=== PATIENT | female | born 1945 | race Two or more races ===

== ENCOUNTER 2018-03-28 13:17 | Outpatient (CLI) | payer MEDICARE ==
--- NOTE | 2018-03-29 13:42 | EKG ---
Test Reason : Blood Pressure : / mmHG Vent. Rate : 076 BPM Atrial Rate : 076 BPM P-R Int : 158 ms QRS Dur : 082 ms QT Int : 402 ms P-R-T Axes : 060 -30 020 degrees QTc Int : 452 ms Normal sinus rhythm Left axis deviation Moderate voltage criteria for LVH, may be normal variant Nonspecific ST abnormality Abnormal ECG No previous ECGs available Confirmed by PÉREZ MARCANO ([id number]) on 03/29/2018 1:41:59 PM Referred By: SAMUEL Confirmed By:PÉREZ MARCANO
== END 2018-03-28 13:18 | disposition home or self-care (01) ==
LOC: LABBT 13:17
PROVIDERS: ATTEND Orthopaedic Surgery
DX: Z01.818 Encounter for other preprocedural examination (principal); M17.12 Unilateral primary osteoarthritis, left knee
CPT/HCPCS: 87081; 93005; 93010

== ENCOUNTER 2018-04-05 11:27 | Outpatient (CLI) | payer MEDICARE ==
[2018-04-05 12:30] LABS: #Basophils 0.1 thou/uL (0.0-0.2); #Eosinphils 0.2 thou/uL (0.0-0.7); #Lymphocytes 2.3 thou/uL (1.20-3.40); #Monocytes 0.4 thou/uL (0.11-0.59); #Neutrophils 3.1 thou/uL (1.40-6.50); %Basophils 1.5 % (0.0-1.0); %Eosinophils 2.5 % (0.0-10.0); %Lymphocytes 37.6 % (21.0-51.0); %Monocytes 6.9 % (0.0-10.0); %Neutrophils 51.4 % (42.0-75.0); Hemoglobin 13.7 g/dL (12.0-16.0); Mean Corpuscular HGB CONC 32.6 g/dL (32.0-36.0); Mean Corpuscular Hemoglobin 28.1 pg (27.0-31.0); Mean Corpuscular Volume 86.2 fL (78.0-98.0); Mean Platelet Volume 8.9 fL (7.4-10.4); Platelet Count 259 thou/uL (130-400); Red Blood Cell (RBC) Count 4.87 mill/uL (4.20-5.40); White Blood Cell (WBC) Count 6.1 thou/uL (4.8-10.8)
[2018-04-05 12:36] LABS: Bilirubin Negative (Negative); Blood, Urine Negative (Negative); Clarity CLEAR (Clear); Glucose, Urine (Dipstick) Negative (Negative); Leukocyte Trace (Negative); Nitrite Negative (Negative); Protein, Urine (Dipstick) Negative (Neg-Trace); Specific Gravity, Urine 1.007 (1.002-1.036); Urobilinogen 0.2 mg/dL (0.2-1.0)
[2018-04-05 12:37] LABS: INR-International Normal Ratio 0.9; Prothrombin Time 12.7 SEC (12.0-14.7)
[2018-04-05 12:39] LABS: Bacteria/HPF None Seen HPF (None Seen); Hyaline Casts/LPF 0-3 HYALINE CAST LPF (0-3 Hyaline); Pathc Cast-AUWi Flag 0.14 (0-2.49); RBC/HPF 0-3 HPF (0-3); Squamous Epithelial None Seen HPF (0-3); WBC/HPF None Seen HPF (0-3)
[2018-04-05 13:23] LABS: Anion Gap 16 mmol/L (10-20); BUN (Urea Nitrogen) 20 mg/dL (9.8-20.1); Calc. Creatinine Clearance 0 mL/min (70-130); Calcium 9.7 mg/dL (7.8-10.44); Carbon Dioxide 23 mmol/L (23-31); Chloride 105 mmol/L (98-107); Estimated GFR-MDRD 77; Glucose 89 mg/dL (83-110); Potassium 4.2 mmol/L (3.5-5.1); Sodium 140 mmol/L (136-145)
== END 2018-04-05 11:28 | disposition home or self-care (01) ==
LOC: LABBT 11:27
PROVIDERS: ATTEND Orthopaedic Surgery
DX: Z01.818 Encounter for other preprocedural examination (principal); M17.12 Unilateral primary osteoarthritis, left knee
CPT/HCPCS: 80048; 81001; 85025; 85610; 86850; 86900; 86901

== ENCOUNTER → 2018-04-08 | Day surgery (SDC) | payer MEDICARE ==
[2018-03-28 13:32] VITALS: BMI 28.1
[~2018-04-08] MED LIST: Acetaminophen 325 MG TAB PO PRN; Budesonide 0.5 MG/2 ML NEB NEB PRN; Bupivacaine PF 0.5% 30 ML VIAL ONE; Clindamycin/D5W 600 mg/50 ml Premix Bag ONE; Cyclobenzaprine 10 MG TAB PO PRN; Fentanyl 100 MCG/2 ML VIAL IV PRN; Fentanyl 100 MCG/2 ML VIAL ONE; Fentanyl 250 MCG/5 ML VIAL ONE; HYDROcodone/Acetaminophen 10/325 mg Tablet PO PRN; Midazolam HCl 2 mg/2 ml Vial ONE; Morphine 4 MG/ML VIAL IV SCH; Morphine 4 MG/ML VIAL ONE; Non-Formulary Item 1 EACH (Iron [Iron] 18 MG) PO SCH; Ondansetron HCl/PF 4 MG/2 ML Vial IVP PRN; Promethazine HCl 25 MG/ML VIAL IM PRN; Promethazine HCl 25 MG/ML VIAL SLOW IVP PRN; Ropivacaine 0.5% HCl/PF (150 MG/30 ML VIAL) ONE; Ropivacaine HCl/PF 250 ML in Premix Bag 1 BAG NERVE BLCK SCH; Sodium Chloride 0.9% 100 ML ONE; Temazepam 15 MG CAP PO PRN; Tranexamic Acid 1,000 MG in Sodium Chloride 0.9% 100 ML IVPB SCH; Vancomycin HCl 1 GM in Premix Bag 1 BAG IVPB SCH; Zolpidem Tartrate 5 MG TAB PO PRN; diphenhydrAMINE 25 MG CAP PO PRN; traMADol HCl 50 MG TAB PO PRN
--- NOTE | 2018-04-08 12:01 | OP ---
DATE OF PROCEDURE: 04/08/2018 PREOPERATIVE DIAGNOSIS: Left knee osteoarthrosis. POSTOPERATIVE DIAGNOSIS: Left knee osteoarthrosis. PROCEDURE PERFORMED: Left total knee replacement using [place] pinless navigation. SURGEON: Moris Rebolledo M.D. VP AD [employer] WEST: Jaxson Swanson PA-C. BLOOD LOSS: Minimal. COMPLICATIONS: None. ANESTHESIA: She had general anesthetic as well as a local block. DISPOSITION: She went to the recovery room in stable condition. IMPLANTS: To the left knee, [place] Triathlon knee system, the femur was size 4 cruciate retaining, the tibial baseplate size 4 universal tibial baseplate. We used a 4 x 9 mm CSX3 tibial bearing and a n asymmetric 29 x 9 X3 patella. INDICATIONS: This is a 73-year-old female who comes in after failing nonoperative treatment for left knee arthritis. At this time, she wished to have her left total knee replaced. PROCEDURE IN DETAIL: After all appropriate consent forms were explained and signed, the patient was t aken back to the Operating Room and at this time was given general anesthetic. Once the level of anes thesia was appropriate, a well-padded tourniquet was placed on the left leg and the leg was then prep ped and draped in standard surgical fashion. The limb was exsanguinated and tourniquet taken up to 30 0 mmHg. Midline incision was made with a 10 blade down through the skin and subcutaneous tissue. Bovi e electrocautery was used to coagulate any brisk venous bleeding. A new blade was used to make a medi al parapatellar arthrotomy. Small subperiosteal release was performed medially and excess fat pad was removed. The knee was flexed up to gain access to the femur. The femur was navigated and distal femo ral resection was made. Epicondylar access was used to align our sizing jig and this was pinned in pl [place]. We sized our femur to be a size 4 cruciate retaining 4:1 cutting block was applied and pinned. A nterior and posterior chamfer cuts were then made. We navigated out our proximal tibia and made our p roximal tibial resection. Spreaders were used to remove any posterior osteophytes off the back of the femur as well as remaining meniscal tissue. A long alignment jigar was then used to achieve correct ro tation of our tibial baseplate and a size 4 universal was chosen. This was pinned in place. We triale d the polyethylene and a 4 x 9 mm CSX3 tibial bearing polyethylene gave us full extension and good st ability throughout range of motion. Two towel clips and a saw were used to cut our patella. Three lug nuts were drilled and asymmetric 29 x 9 X3 patella was trialed which sat nicely in the trochlear lo ove. We then drilled our femur and punched our tibia. All components were removed. The knee was thoro ughly irrigated and dried. Cement was mixed into the cement gun on the back table. Components were th en placed. The knee was held out in full extension until the cement had dried. All excess bone cement was removed. Multiple #2 Vicryl stitches as well as a Quill was used to close our extensor mechanis m. 0 Quill followed by a running Monoderm was then used to close the skin. Surgicel glue was then use d on the skin. Once this had dried, soft tissue dressing was applied to the limb, tourniquet was let down, and the toes pinked up nicely. The patient was then awakened and taken to the Recovery Room in stable condition. All counts were correct at the end of the case. The patient did receive preoperati ve IV antibiotics. The patient was injected with Exparel for postoperative pain relief.
[2018-04-08] MEDS: Clindamycin/D5W 900 MG in Premix Bag 1 BAG IVPB SCH ×2 (16:45→20:37)
[2018-04-08] MEDS: HYDROcodone/Acetaminophen 10/325 mg Tablet PO PRN ×2 (16:52→21:38)
[2018-04-08] MEDS: Sodium Chloride 0.9% 1,000 ML IV SCH ×2 (17:05→20:38)
[2018-04-08] MEDS: Ketorolac Tromethamine 30 MG/ML VIAL IVP SCH ×3 (17:05→23:37)
[2018-04-08] MEDS: Albuterol Sulfate 1.25 MG/3 ML NEB NEB PRN (18:06)
--- NOTE | 2018-04-08 20:04 | CON ---
DATE OF CONSULTATION: 04/08/2018 [facility] CONSULTANT: Dr. Rebolledo. REASON FOR CONSULTATION: Perioperative medical management. HISTORY OF PRESENT ILLNESS: Patient is a 73-year-old female with a history of chronic degenerative j oint disease who has failed conservative therapy including steroid joint injections and arthroplasty in the past. The patient is now postop left total knee replacement. The patient reports that she is doing well currently and has no specific complaints and is not having significant pain. PAST MEDICAL HISTORY: Notable for asthma. The patient reports that the last time she was in the [facility], she did require some nebulizer treatments. She has generally been well controlled. She does have a history of diverticulitis. She also has a history of aortic aneurysm. She indicates the uppe r chest as if it is in the ascending arch area. She has a doctor in [place] who was following this r outinely. PAST SURGICAL HISTORY: , colon surgery and cataractectomy. FAMILY HISTORY: Notable for no significant problems relative to her current admission. PSYCHOSOCIAL HISTORY: The patient is a nonsmoker, minimal drinker, nondrug user. ALLERGIES: PENICILLIN. HOME MEDICATIONS: Dulcolax 100 mg p.o. at bedtime, iron 18 mg every day, budesonide 1 ampule inhaled p.r.n., Theophylline ER 300 mg every day, Singulair 10 mg every day, Incruse Ellipta 1 inhalation ev bety day, [place] 10/325 p.o. t.i.d. p.r.n., Flexeril 10 mg p.r.n., atenolol 25 mg every day. PHYSICAL EXAMINATION: GENERAL APPEARANCE: Age appropriate female. She is in no distress, awake, alert, oriented, pleasant and cooperative. HEENT: PERRL. No OP lesions. NECK: Supple and symmetric. HEART: Regular rate and rhythm without murmurs. LUNGS: Have fairly good air exchange, but have some relatively diffuse end expiratory wheezes. ABDOMEN: Soft, nontender, nondistended, positive bowel sounds. No masses, no organomegaly. EXTREMITIES: Lower extremities are warm and dry. She has good peripheral pulses. LABORATORY DATA: From 04/05/2018, white count 6.1, hemoglobin 13.7, platelets 259. INR 0.9, BNP is negative. Urinalysis shows trace leukocyte esterase, but no white cells. ASSESSMENT AND PLAN: 1. Postop left total knee arthroplasty. Patient is doing very well postoperatively. We will defer to Orthopedics regarding postop care. 2. Asthma. Patient has a known history of asthma. She has some minor wheezing now, but seems to be relatively asymptomatic and moving air fairly well. We will make sure she has nebulizer treatments ordered for her p.r.n. 3. History of an aortic arch aneurysm. It sounds like this has been monitored closely and stable. No intervention indicated at this time.
[2018-04-08] MEDS: Docusate 100 MG CAP PO SCH (20:37)
[2018-04-08] MEDS: Aspirin 81 mg Enteric Coated Tablet PO SCH (20:37)
[2018-04-09] MEDS: HYDROcodone/Acetaminophen 10/325 mg Tablet PO PRN ×5 (03:34→23:31)
[2018-04-09 05:57] LABS: Hemoglobin 10.1 g/dL (12.0-16.0); Mean Corpuscular HGB CONC 33.1 g/dL (32.0-36.0); Mean Corpuscular Hemoglobin 28.4 pg (27.0-31.0); Mean Platelet Volume 9.2 fL (7.4-10.4); Platelet Count 223 thou/uL (130-400); Red Blood Cell (RBC) Count 3.55 mill/uL (4.20-5.40); White Blood Cell (WBC) Count 14.9 thou/uL (4.8-10.8)
[2018-04-09] MEDS: Ketorolac Tromethamine 30 MG/ML VIAL IVP SCH ×4 (06:14→23:32)
[2018-04-09] MEDS: Sodium Chloride 0.9% 1,000 ML IV SCH ×2 (06:16→19:22)
[2018-04-09] MEDS: Albuterol Sulfate 1.25 MG/3 ML NEB NEB PRN (07:20)
[2018-04-09] MEDS: Atenolol 25 MG TAB PO SCH (07:33)
[2018-04-09] MEDS: Senokot S 8.6-50 MG TAB PO SCH ×2 (07:33→19:52)
[2018-04-09] MEDS: Ferrous Gluconate 324 MG TAB PO SCH ×2 (07:34→19:52)
[2018-04-09] MEDS: Aspirin 81 mg Enteric Coated Tablet PO SCH ×2 (07:34→19:52)
[2018-04-09] MEDS: Multivitamin W/ Minerals 1 TAB PO SCH (07:34)
--- NOTE | 2018-04-09 12:36 | PRG ---
DATE OF SERVICE: 04/09/2018 SUBJECTIVE: Shireen is a 73-year-old white female who is postop day #1 from a left total knee arthropl asty. She is doing very well. In fact, her pain is controlled with her indwelling catheter. She mckeon s had very little in the way of complaints and she is very cheerful this morning. OBJECTIVE: VITAL SIGNS: Temperature 98.8, pulse 91, blood pressure 123/59, respiratory rate 16, O2 saturation 1 00% on room air. GENERAL: She is alert, oriented to person, place, time, and situation. Grossly nonfocal and very ap propriate and happy with the examiner and appears incredibly comfortable. EXTREMITIES: She is neurovascularly intact in both lower extremities. Hemoglobin and hematocrit are 10 and 30. ASSESSMENT: 1. A 73-year-old white female postop day #1 left total knee arthroplasty, doing incredibly well. 2. Asymptomatic mild postoperative hemorrhagic anemia. PLAN: Continue current care. Probable discharge tomorrow.
[2018-04-09] MEDS: Docusate 100 MG CAP PO SCH (19:53)
[2018-04-10] MEDS: Sodium Chloride 0.9% 1,000 ML IV SCH (01:02)
[2018-04-10] MEDS: HYDROcodone/Acetaminophen 10/325 mg Tablet PO PRN ×3 (03:56→12:15)
[2018-04-10] MEDS: Ketorolac Tromethamine 30 MG/ML VIAL IVP SCH (05:40)
[2018-04-10 06:23] LABS: Hemoglobin 10.4 g/dL (12.0-16.0); Mean Corpuscular Hemoglobin 28.7 pg (27.0-31.0); Mean Platelet Volume 9.4 fL (7.4-10.4); Platelet Count 206 thou/uL (130-400); RBC Distribution Width 12.2 % (11.5-14.5); Red Blood Cell (RBC) Count 3.63 mill/uL (4.20-5.40); White Blood Cell (WBC) Count 7.9 thou/uL (4.8-10.8)
[2018-04-10] MEDS: Atenolol 25 MG TAB PO SCH (08:29)
[2018-04-10] MEDS: Ferrous Gluconate 324 MG TAB PO SCH (08:30)
[2018-04-10] MEDS: Aspirin 81 mg Enteric Coated Tablet PO SCH (08:30)
[2018-04-10] MEDS: Multivitamin W/ Minerals 1 TAB PO SCH (08:30)
[2018-04-10 11:53] VITALS: BP 162/97; TEMP 98.4
[2018-04-10] MEDS: Senokot S 8.6-50 MG TAB PO SCH (12:17)
== END ==
LOC: SDC 07:18 → SURG A 14:24
PROVIDERS: ATTEND Orthopaedic Surgery
PROC: 0SRD0J9 Replacement of Left Knee Joint with Synthetic Substitute, Cemented, Open Approach (ICD-10-PCS; principal; 2018-04-08)
DX: M17.12 Unilateral primary osteoarthritis, left knee (principal); J45.909 Unspecified asthma, uncomplicated; I71.2 Thoracic aortic aneurysm, without rupture; D64.9 Anemia, unspecified; Z79.899 Other long term (current) drug therapy; Z88.0 Allergy status to penicillin
CPT/HCPCS: 36415; 85027; 86850; 86900; 86901; 94640; 96374; A4216; C1713; C1776; G8978-GP-CM; G8979-GP-CJ; J1885; J2250; J2270; J2795; J3010; J3370; J3490; J7050; J7626; S0020

== ENCOUNTER 2018-04-26 04:04 | Inpatient (IN) | payer MEDICARE ==
[2018-04-26] MEDS ORDERED: Ondansetron HCl/PF 4 MG/2 ML Vial ONE ×2 (04:30→09:51)
[2018-04-26] MEDS ORDERED: Morphine 4 MG/ML VIAL ONE ×2 (04:30→07:49)
[2018-04-26 06:37] LABS: #Basophils 0.1 thou/uL (0.0-0.2); #Eosinphils 0.1 thou/uL (0.0-0.7); #Lymphocytes 1.9 thou/uL (1.20-3.40); #Monocytes 0.5 thou/uL (0.11-0.59); #Neutrophils 7.3 thou/uL (1.40-6.50); %Basophils 0.9 % (0.0-1.0); %Eosinophils 1.3 % (0.0-10.0); %Lymphocytes 18.9 % (21.0-51.0); %Monocytes 4.6 % (0.0-10.0); %Neutrophils 74.3 % (42.0-75.0); Hemoglobin 11.1 g/dL (12.0-16.0); Mean Corpuscular HGB CONC 33.3 g/dL (32.0-36.0); Mean Corpuscular Hemoglobin 28.6 pg (27.0-31.0); Mean Platelet Volume 8.1 fL (7.4-10.4); Platelet Count 441 thou/uL (130-400); RBC Distribution Width 12.1 % (11.5-14.5); Red Blood Cell (RBC) Count 3.89 mill/uL (4.20-5.40); White Blood Cell (WBC) Count 9.8 thou/uL (4.8-10.8)
[2018-04-26 06:54] LABS: ALT (SGPT) 29 U/L (8-55); AST (SGOT) 21 U/L (5-34); Albumin 4.3 g/dL (3.4-4.8); Alkaline Phosphatase 166 U/L (40-150); Anion Gap 14 mmol/L (10-20); BUN (Urea Nitrogen) 24 mg/dL (9.8-20.1); Bilirubin, Total 0.3 mg/dL (0.2-1.2); Calc. Creatinine Clearance 0 mL/min (70-130); Calcium 9.3 mg/dL (7.8-10.44); Carbon Dioxide 22 mmol/L (23-31); Chloride 106 mmol/L (98-107); Estimated GFR-MDRD 73; Globulin 2.7 g/dL (2.4-3.5); Glucose 116 mg/dL (83-110); Potassium 4.5 mmol/L (3.5-5.1); Sodium 137 mmol/L (136-145)
--- NOTE | 2018-04-26 08:01 | RAD ---
CHEST 1 VIEW: Date: 04/26/18 HISTORY: Preoperative exam. COMPARISON: None. FINDINGS: Atherosclerosis of the aortic knob. Slight elongation of the aorta. Normal cardiac silhouette. Pulmon georgie vessels and hilum are normal. Costophrenic angles are clear. No masses. No consolidation. Old rig ht rib fractures. No pneumothorax. IMPRESSION: Atherosclerosis. No acute cardiopulmonary process. POS: [facility]
--- NOTE | 2018-04-26 08:06 | RAD ---
LEFT KNEE FOUR VIEWS: HISTORY: Fall three weeks ago. Pain. COMPARISON: None. FINDINGS: The lateral projection suggests a possible cortical break involving the anterior distal femur. Uncom plicated prosthesis. There appears to be a joint effusion. IMPRESSION: Possible fracture involving the anterior distal left femur. The results of the study were discussed with Dr. Weston on 04/26/2018 at 7:48 a.m. CODE ANGELITO POS: [place]
--- NOTE | 2018-04-26 08:11 | RAD ---
LEFT KNEE ONE VIEW: HISTORY: Fall three weeks ago. Pain. FINDINGS: Previously discussed cortical defect on the anterior distal femur is not appreciated; however, there is a significant joint effusion. If there is concern for fracture, consider CT. The results of the study were discussed with Dr. Weston on 04/26/2018 at 7:49 a.m. CODE [facility] [place]: [place]
[2018-04-26] MEDS ORDERED: PROPOFOL 200 MG/20 ML VIAL ONE (09:51)
[2018-04-26] MEDS ORDERED: Lidocaine 1% PF 5 ML VIAL ONE (09:51)
[2018-04-26] MEDS ORDERED: Dexamethasone 20 MG/5 ML VIAL ONE (09:51)
[2018-04-26 10:17] VITALS: BMI 27.4
--- NOTE | 2018-04-26 11:19 | HP ---
DATE OF SERVICE: 04/26/2018 ATTENDING: Dr. Moris Rebolledo CHIEF COMPLAINT: Left knee pain status post fall. HISTORY OF PRESENT ILLNESS: This is a 73-year-old female who recently underwent left total knee replacement 3 weeks ago, presented to the emergency department around 4:00 o'clock this morning after she states that she had a dream that she needed to go to the bathroom. She suddenly awoke and walked to the bathroom forgetting she recently underwent surgery for her left knee by Dr. Rebolledo on 04/08/2018. She states that her knee buckled below her and she fell landing on her left knee. She contacted the physician remediation consultant and was directed to the emergency department. Upon workup in the emergency department, the patient was found to have a partial quadriceps tendon rupture. Currently, at bedside, the patient states that her pain is tolerable. She denies any numbness or tingling. She had been doing very well after her total knee replacement. The patient states that her pain and swelling she feels as this has improved since she was in the ER earlier this morning. She states she is able to do a straight leg raise at this time. PAST MEDICAL HISTORY: Asthma, diverticulitis, aortic aneurysm. PAST SURGICAL HISTORY: Significant for C-sections, colon surgery, cataract surgery and her left total knee replacement done in March of this year. FAMILY HISTORY: Reviewed and noncontributory. SOCIAL HISTORY: The patient lives at home alone. She currently has a friend that resides with her during her postoperative course. She denies any smoking or illicit drug use. She is a social drinker. ALLERGIES: PENICILLIN. REVIEW OF SYSTEMS: Ten point review of systems conducted and otherwise negative except for as stated above. PHYSICAL EXAMINATION: GENERAL: The patient is awake and alert. She is mildly distressed secondary to anxiety. Her son is at bedside with her. She is in no acute distress. VITAL SIGNS: Temperature 98.2, pulse 75, respirations 16, blood pressure 126/ 74. HEENT: Head is normocephalic, atraumatic. NECK: Supple. Trachea midline. RESPIRATORY: Breathing nonlabored. CARDIOVASCULAR: Regular rate and rhythm. EXTREMITIES: The left lower extremity was examined. There is a surgical wound to the left anterior knee. This has healed quite nicely. No surrounding erythema. No wound dehiscence. The patient has some soft tissue swelling to the lateral quadriceps region. She is able to hold a straight leg raise for greater than 5 seconds. Plantar flexion, dorsiflexion intact in the foot. No tenderness to palpation over the calf. Distal neurovascular status intact in the foot. Range of motion not assessed in the knee. Remainder of extremity exam is otherwise unremarkable. Radiographic imaging including a lower extremity ultrasound verifies a partial quadriceps tendon tear. These results were phoned to Dr. Rebolledo. ASSESSMENT: Status post left total knee replacement with partial quadriceps tendon tear, left knee. PLAN: At this time, we would like to go forward with surgery to restore anatomy and preserve function to the partial tendon tear of the quadriceps tendon to the left knee. Surgical intervention discussed at length with the patient today as well as her family. They verbalized understanding. They are amenable to this plan of care. We will plan to proceed with surgery today. All questions have been answered. JOSE ALFREDO
[2018-04-26] MEDS ORDERED: Fentanyl 100 MCG/2 ML VIAL ONE ×4 (11:30→15:32)
--- NOTE | 2018-04-26 11:44 | ULT ---
LIMITED ULTRASOUND OF THE BILATERAL KNEES: 04/26/2018 HISTORY: Left lower extremity pain after a fall. The patient has a history of a left total knee prosthesis. Physical examination is limited, and there is concern for extensor mechanism and possible tear. TECHNIQUE: Limited sonographic evaluation of each knee was performed. Views of the right knee were obtained for comparison. FINDINGS: Imaging of the suprapatellar and infrapatellar locations of the right knee demonstrate fibers of the quadriceps tendon, as well as the patellar tendon, which appear normally located, without fluid signa l intensity in these regions. There is a tiny, nonspecific fluid collection seen lateral to the righ t patella, measuring 1.3 cm. Imaging of the left knee is difficult due to the patient's midline scar. There are several fluid col lections about the knee, some of which are likely related to joint effusions. The largest complex ar ea of fluid, lateral to the patella, left knee, demonstrates increased echogenic material, likely rel ated to hemorrhage. This measures 4.9 cm x 4 cm x 3.9 cm and is likely related to hemorrhage/hematom a. Additional separate collections are also seen about the left knee, although the collections are l ess complicated in appearance. In the expected location of the quadriceps tendon, just superior to the level of the patella, there i s heterogeneity and, while normal appearing fibers are unable to be delineated, there is no fluid sig nal intensity to suggest a complete tear, but findings are worrisome for at least a partial tear of t he quadriceps tendon. IMPRESSION: 1. Heterogeneous appearance in the region of the distal portion of the quadriceps tendon, just super ior to the level of the patella. There is no fluid collection or gap to definitely suggest a complet e tear involving the quadriceps tendon, but given the heterogeneity in the distal portion of the tend on, findings are worrisome for a partial tear likely high grade. No normal fibers of the quadriceps tendon are seen, but the extent of the partial tear is difficulty to further delineate due to heterog eneous material. 2. Left knee joint effusion with fluid collections seen adjacent to the left knee, one of which demo nstrates increased echogenic material, likely related to hemorrhage, with the greatest dimension at 4 .9 cm. POS: [facility]
[2018-04-26] MEDS ORDERED: Clindamycin/D5W 600 mg/50 ml Premix Bag ONE (12:19)
[2018-04-26] MEDS ORDERED: traMADol HCl 50 MG TAB PO PRN (12:43)
[2018-04-26] MEDS ORDERED: HYDROcodone/Acetaminophen 10/325 mg Tablet PO PRN (12:43)
[2018-04-26] MEDS ORDERED: Ondansetron HCl/PF 4 MG/2 ML Vial IV PRN (12:43)
[2018-04-26] MEDS ORDERED: Fentanyl 100 MCG/2 ML VIAL SLOW IVP PRN (12:43)
[2018-04-26] MEDS ORDERED: Tranexamic Acid 1,000 MG in Sodium Chloride 0.9% 100 ML IVPB SCH (12:45)
[2018-04-26] MEDS ORDERED: Communication Order-Pharmacy FS SCH (12:45)
[2018-04-26] MEDS ORDERED: Ondansetron ODT 4 MG TAB PO PRN (13:02)
[2018-04-26] MEDS: Dextrose 5 % And 0.9 % NaCl 1,000 ML IV SCH ×2 (13:25→15:56)
[2018-04-26] MEDS ORDERED: Promethazine HCl 25 MG/ML VIAL SLOW IVP PRN (14:04)
[2018-04-26] MEDS ORDERED: Ondansetron HCl/PF 4 MG/2 ML Vial IVP PRN (14:04)
[2018-04-26] MEDS ORDERED: Promethazine HCl 25 MG/ML VIAL IM PRN (14:04)
[2018-04-26] MEDS ORDERED: Morphine Sulfate 2 MG/ML SYRINGE SLOW IVP PRN (14:05)
[2018-04-26] MEDS ORDERED: HYDROmorphone 2 MG/ML VIAL ONE (14:14)
[2018-04-26] MEDS ORDERED: Midazolam HCl 2 mg/2 ml Vial ONE (14:45)
[2018-04-26] MEDS: HYDROcodone/Acetaminophen 10/325 mg Tablet PO PRN ×2 (17:14→21:07)
[2018-04-26] MEDS ORDERED: TETANUS AND DIPHTHERIA TOX/PF 0.5 ML DISP.SYRIN IM SCH (18:00)
[2018-04-26] MEDS: Aspirin 81 mg Enteric Coated Tablet PO SCH (21:06)
[2018-04-26] MEDS: Clindamycin/D5W 900 MG in Premix Bag 1 BAG IVPB SCH (21:06)
[2018-04-26] MEDS ORDERED: Zolpidem Tartrate 5 MG TAB PO PRN (21:39)
[2018-04-27] MEDS: HYDROcodone/Acetaminophen 10/325 mg Tablet PO PRN ×4 (01:41→13:58)
[2018-04-27] MEDS: Vancomycin HCl 1 GM in Premix Bag 1 BAG IVPB SCH ×2 (01:43→11:54)
[2018-04-27 05:17] LABS: #Lymphocytes 1.1 thou/uL (1.20-3.40); #Monocytes 0.5 thou/uL (0.11-0.59); #Neutrophils 7.7 thou/uL (1.40-6.50); %Basophils 0.4 % (0.0-1.0); %Eosinophils 0.1 % (0.0-10.0); %Lymphocytes 11.4 % (21.0-51.0); %Monocytes 5.6 % (0.0-10.0); %Neutrophils 82.5 % (42.0-75.0); Hemoglobin 9.4 g/dL (12.0-16.0); Mean Corpuscular HGB CONC 33.1 g/dL (32.0-36.0); Mean Corpuscular Hemoglobin 28.8 pg (27.0-31.0); Mean Platelet Volume 8.9 fL (7.4-10.4); Platelet Count 372 thou/uL (130-400); RBC Distribution Width 12.2 % (11.5-14.5); Red Blood Cell (RBC) Count 3.26 mill/uL (4.20-5.40); White Blood Cell (WBC) Count 9.3 thou/uL (4.8-10.8)
[2018-04-27] MEDS: Clindamycin/D5W 900 MG in Premix Bag 1 BAG IVPB SCH ×2 (05:52→13:58)
[2018-04-27] MEDS: Aspirin 81 mg Enteric Coated Tablet PO SCH (08:24)
[2018-04-27] MEDS ORDERED: Prevnar 13-Val Conj/PF 0.5 ML SYRINGE IM ONE (09:00)
[2018-04-27 16:35] VITALS: BP 115/67; TEMP 98.3
--- NOTE | 2018-04-30 09:31 | OP ---
DATE OF PROCEDURE: 04/26/2018 PREOPERATIVE DIAGNOSIS: Torn extensor mechanism, status post recent total knee replacement. POSTOPERATIVE DIAGNOSIS: Torn extensor mechanism, status post recent total knee replacement. PROCEDURE PERFORMED: Left knee exploration followed by irrigation and debridement of the left knee j oint followed by primary repair of torn extensor mechanism, left knee. SURGEON: Moris Rebolledo M.D. SAFETY ADMIN ASSISTANT: Marguerite Sol PA-C. IMPLANTS: None. COMPLICATIONS: None. ANESTHESIA: She had a general anesthetic. INDICATIONS: Ms. Stewart is a 73-year-old female who had a knee replacement done a couple weeks ea becky, who early this morning apparently had some form of dream in which she woke up startled, jumped out of bed and injured her left knee. She was told to come to the emergency room and at the time I evaluated her, she was unable to do a good leg raise and an ultrasound was ordered. The ultrasound s howed at least a partial disruption of the extensor mechanism. At this time, it was decided to take Ms. Stewart to the operating room. DESCRIPTION OF PROCEDURE: After all appropriate consent forms were explained and signed, Ms. Loreta zafar was taken to the OR and at this time was given general anesthetic. Once anesthesia was appropriat e, the tourniquet was placed on the left thigh, the leg was then prepped and draped in the standard s urgical fashion. The proximal half of the incision was opened up with a 10 blade. Any sutures were removed. There was a disruption in the area of the VMO and fortunately this was a small disruption j ust about a centimeter or so. Inside this there was a copious amount of blood clot. This was remove d. We then thoroughly irrigated the knee joint as well as the open soft tissues and once this was do ne, we used multiple #2 Vicryl sutures to reapproximate the small area of torn extensor mechanism. O nce this was done, some 2-0 Vicryls and skin sutures were then used for skin. Bulky sterile dressing was applied. The patient was awakened and taken to the recovery room in stable condition. All coun ts were correct at the end of the case and she did receive preoperative IV antibiotics.
--- NOTE | 2018-05-06 12:53 | DIS-2 ---
This is Marguerite Sol PA-C of Orthopedic Surgery dictating on behalf of Moris Rebolledo MD. DATE OF ADMISSION: 04/26/2018 DATE OF DISCHARGE: 04/27/2018 REASON FOR ADMISSION: Torn quadriceps muscle on the left side, status post recent total knee replace ment ATTENDING PHYSICIAN: Moris Rebolledo MD. BRIEF HOSPITAL COURSE: This is a 73-year-old female who underwent recent total knee arthroplasty on the left side with Dr. Rebolledo on 04/08/2018. She stated that she got up to go to the bathroom in the m iddle of the night forgetting that she recently underwent surgery on the left knee. She fell to the ground. She had immediate knee pain and difficulty walking. [facility] and then admitted to our service for evaluation. Ultrasound showed a partial quadriceps tendon rup ture of the left knee. Patient underwent surgical exploration and repair with Dr. Rebolledo. Postop day #1, pain was controlled. She received IV antibiotics. She worked with physical therapy. She was di scharged home. Weightbear as tolerated. She will follow up in the orthopedic clinic. DISCHARGE DISPOSITION: Home. DISCHARGE CONDITION: Stable. DISCHARGE INSTRUCTIONS: Weightbearing as tolerated. Knee immobilizer while up. Follow up in the or thopedic clinic in 2 weeks. DISCHARGE MEDICATIONS: See OCT.
== END 2018-04-27 16:59 | disposition home or self-care (01) | DRG 489 ==
LOC: ERS 04:04 → SJJU 07:37
PROVIDERS: ADMIT Orthopaedic Surgery; ATTEND Orthopaedic Surgery
PROC: 0SCD0ZZ Extirpation of Matter from Left Knee Joint, Open Approach (ICD-10-PCS; principal; 2018-04-26)
PROC: 0LQR0ZZ Repair Left Knee Tendon, Open Approach (ICD-10-PCS; 2018-04-26)
DX: S76.112A Strain of left quadriceps muscle, fascia and tendon, initial encounter (principal); Z96.652 Presence of left artificial knee joint; J45.909 Unspecified asthma, uncomplicated; Z88.0 Allergy status to penicillin; W18.30XA Fall on same level, unspecified, initial encounter
CPT/HCPCS: 36415; 71045; 76882; 80053; 85025; 93005; 96361; 96374; 96375; 96376; G8978-GP-CJ; G8979-GP-CI; J1100; J1170; J2001; J2250; J2270; J2405; J2704; J3010; J3370; J3490